=== PATIENT | male | born 1980 | race Caucasian/White ===

== ENCOUNTER 2019-10-13 18:35 | Emergency (ER) | payer OTHER ==
[2019-10-13] MEDS ORDERED: HYDROmorphone 0.5 MG/0.5 ML Syringe IVPUSH ONE ×2 (19:43→20:36)
[2019-10-13] MEDS: Sodium Chloride 0.9% 10 ML Syringe FLUSH PRN ×2 (19:56→21:15)
[2019-10-13] MEDS ORDERED: Sodium Chloride 0.9% 10 ML Syringe FLUSH PRN (20:06)
[2019-10-13] MEDS ORDERED: Iopamidol 755 Mg/ML 100 ML Bottle IVPUSH ONE (20:06)
[2019-10-13] MEDS ORDERED: Sodium Chloride 0.9% 100 ML IV SCH (20:15)
--- NOTE | 2019-10-13 20:18 | EDM.PDOC ---
ED HPI GENERAL MEDICAL PROBLEM - General Chief Complaint: Neck Problem Stated Complaint: NECK PAIN Time Seen by Provider: 10/13/19 19:14 Source of Information: Reports: Patient History Limitations: Reports: No Limitations - History of Present Illness INITIAL COMMENTS - FREE TEXT/NARRATIVE: The patient presents with neck pain. Today he developed dizziness at work. He went home to rest and came back and still had dizziness. He left work and took a nap and when he woke up he had pain to his left neck. He has some pain at the base of his head. He has no numbness or weakness. He says the dizziness is both room spinning and lightheadedness. He has never had this happen before. He tried to stretch his neck out and that made his dizziness worse. He has no pain down his arm. He has no numbness or weakness. He has no fever, chills, cough, congestion, runny nose, chest pain, shortness of breath, abdominal pain, nausea or vomiting. Onset: Gradual Duration: Hour(s): Location: Reports: Head, Neck Quality: Reports: Sharp Severity: Severe Improves with: Reports: Immobilization Worsens with: Reports: Movement Context: Denies: Trauma Associated Symptoms: Reports: No Other Symptoms Neck Pain Score (Numeric/FACES): 7 - Related Data Allergies Allergy/AdvReac Type Severity Reaction Status Date / Time No Known Allergies Allergy Verified 10/13/19 19:14 Home Meds: Home Meds metFORMIN [Glucophage XR] 1,000 mg PO BID 03/22/19 [History] Buprenorphine HCl/Naloxone HCl [Suboxone 4 mg-1 mg Sl Film] 16 mg PO DAILY 10/13 [History] Glimepiride [Amaryl] 6 mg PO DAILY 10/13/19 [History] Meclizine [Antivert] 25 mg PO Q6H PRN #30 tab 10/13/19 [Rx] Past Medical History HEENT History: Reports: None Cardiovascular History: Reports: None Respiratory History: Reports: None Other Gastrointestinal History: hernia repair Genitourinary History: Reports: None Neurological History: Reports: None Psychiatric History: Reports: Addiction Endocrine/Metabolic History: Reports: Diabetes, Type II Hematologic History: Reports: None Immunologic History: Reports: None Oncologic (Cancer) History: Reports: None Dermatologic History: Reports: None - Infectious Disease History Infectious Disease History: Reports: None - Past Surgical History Head Surgeries/Procedures: Reports: None GI Surgical History: Reports: Hernia, Inguinal Other Musculoskeletal Surgeries/Procedures:: restless arm Social & Family History - Tobacco Use Smoking Status *Q: Never Smoker Second Hand Smoke Exposure: No - Caffeine Use Caffeine Use: Reports: Coffee - Recreational Drug Use Recreational Drug Use: No - Living Situation & Occupation Living situation: Reports: , Alone 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 Denies: Chest Pain Endocrine: Reports: No Symptoms GI/Abdominal: Reports: No Symptoms : Reports: No Symptoms Musculoskeletal: Reports: Neck Pain Skin: Reports: No Symptoms Neurological: Reports: Dizziness, Headache Psychiatric: Reports: No Symptoms ED EXAM, UPPER BACK/NECK PAIN - Physical Exam Exam: See Below Exam Limited By: No Limitations General Appearance: Alert, No Apparent Distress Ears Exam: Normal External Exam Nose Exam: Normal Inspection Throat/Mouth Exam: Normal Inspection Head Exam: Atraumatic, Normocephalic Neck Exam: Other (Pain upon palpation to the left neck) Cardiovascular/Respiratory: Regular Rate, Rhythm, No M/R/G, Normal Breath Sounds , No Respiratory Distress GI/Abdominal: Soft, Non-Tender, No Organomegaly, No Mass Back Exam: Normal Inspection Extremities: Normal Inspection Neurologic: No Motor/Sensory Deficits, Alert, Oriented x 3 EKG INTERPRETATION EKG Date: 10/13/19 Time: 19:50 Rhythm: NSR Rate (Beats/Min): 60 [place]: Normal P-Wave: Present QRS: Normal ST-T: Normal QT: Normal Course - Vital Signs Last Recorded V/S: Last Vital Signs Temp 97.5 F 10/13/19 19:12 Pulse 55 L 10/13/19 19:12 Resp 16 10/13/19 19:12 BP 135/77 10/13/19 19:12 Pulse Ox 98 10/13/19 19:12 - Orders/Labs/Meds Orders: Active Orders 24 hr Category Date Time Status Cardiac Monitoring [RC] . DIRECTED Care 10/13/19 19:40 Active EKG Documentation Completion [RC] STAT Care 10/13/19 19:41 Active Peripheral IV Care [RC] . DIRECTED Care 10/13/19 19:41 Active Sodium Chloride 0.9% [Normal Saline] 100 ml Med 10/13/19 20:15 Active IV ASDIRECTED Sodium Chloride 0.9% [Saline Flush] Med 10/13/19 20:06 Active 10 ml FLUSH ASDIRECTED PRN Peripheral IV Insertion Adult [OM.PC] Stat Oth 10/13/19 19:40 Ordered Medication Orders Sodium Chloride (Normal Saline) 100 mls @ 3 mls/sec IV ASDIRECTED BREANNA Last Admin: 10/13/19 21:15 Dose: 3 mls/sec Sodium Chloride (Saline Flush) 10 ml FLUSH ASDIRECTED PRN PRN Reason: Keep Vein Open Last Admin: 10/13/19 21:19 Dose: 10 ml Labs: Laboratory Tests 10/13/19 10/13/19 Range/Units 19:55 19:55 WBC 7.97 (4.23-9.07) K/mm3 RBC 5.24 (4.63-6.08) M/mm3 Hgb 15.3 (13.7-17.5) gm/dl Hct 44.9 (40.1-51.0) % MCV 85.7 (79.0-92.2) fl MCH 29.2 (25.7-32.2) pg MCHC 34.1 (32.2-35.5) g/dl RDW Std Deviation 38.8 (35.1-43.9) fL Plt Count 251 (163-337) K/mm3 MPV 8.5 L (9.4-12.3) fl Neut % (Auto) 56.4 (34.0-67.9) % Lymph % (Auto) 32.5 (21.8-53.1) % [place] % (Auto) 10.5 (5.3-12.2) % Eos % (Auto) 0.5 L (0.8-7.0) Baso % (Auto) 0.1 (0.1-1.2) % Neut # (Auto) 4.49 (1.78-5.38) K/mm3 Lymph # (Auto) 2.59 (1.32-3.57) K/mm3 [place] # (Auto) 0.84 H (0.30-0.82) K/mm3 Eos # (Auto) 0.04 (0.04-0.54) K/mm3 Baso # (Auto) 0.01 (0.01-0.08) K/mm3 Sodium 140 (136-145) mEq/L Potassium 3.9 (3.5-5.1) mEq/L Chloride 103 (98-107) mEq/L Carbon Dioxide 27 (21-32) mEq/L Anion Gap 13.9 (5-15) BUN 17 (7-18) mg/dL Creatinine 0.8 (0.7-1.3) mg/dL Est Cr Clr Drug Dosing 132.04 mL/min Estimated GFR (MDRD) > 60 (>60) mL/min BUN/Creatinine Ratio 21.3 H (14-18) Glucose 135 H (74-106) mg/dL Calcium 9.2 (8.5-10.1) mg/dL Total Bilirubin 0.3 (0.2-1.0) mg/dL AST 28 (15-37) U/L ALT 74 H (16-63) U/L Alkaline Phosphatase 75 (46-116) U/L Troponin I < 0.017 (0.00-0.056) ng/mL C-Reactive Protein 0.6 (<1.0) mg/dL Total Protein 7.6 (6.4-8.2) g/dl Albumin 3.9 (3.4-5.0) g/dl Globulin 3.7 gm/dL Albumin/Globulin Ratio 1.1 (1-2) Meds: Medications Generic Name Dose Route Start Last Admin Trade Name Bita PRN Reason Stop Dose Admin Sodium Chloride 100 mls @ 3 mls/sec 10/13/19 20:15 10/13/19 21:15 Normal Saline IV 3 mls/sec ASDIRECTED BREANNA Administration Sodium Chloride 10 ml 10/13/19 20:06 10/13/19 21:19 Saline Flush FLUSH 10 ml ASDIRECTED PRN Administration Keep Vein Open Discontinued Medications Generic Name Dose Route Start Last Admin Trade Name Freq PRN Reason Stop Dose Admin Hydromorphone HCl 0.5 mg 10/13/19 19:43 10/13/19 19:56 Dilaudid IVPUSH 10/13/19 19:44 0.5 mg ONETIME ONE Administration Hydromorphone HCl 0.5 mg 10/13/19 20:36 10/13/19 20:41 Dilaudid IVPUSH 10/13/19 20:37 0.5 mg ONETIME ONE Administration Iopamidol 100 ml 10/13/19 20:06 10/13/19 21:15 Isovue-370 (76%) IVPUSH 10/13/19 20:07 100 ml ONETIME ONE Administration Meclizine HCl 25 mg 10/13/19 19:43 10/13/19 19:55 Antivert PO 10/13/19 19:44 25 mg ONETIME ONE Administration Sodium Chloride 10 ml 10/13/19 19:40 10/13/19 21:15 Saline Flush FLUSH 10 ml ASDIRECTED PRN Administration Keep Vein Open - Re-Assessments/Exams Free Text/Narrative Re-Assessment/Exam: 10/13/19 22:11 I ordered an IV saline lock, EKG, CT of his head and neck, labs, antivert and dilaudid. His EKG shows a NSR with no acute changes. His CBC looks good. His ALT is elevated at 74. His troponin is negative. His CRP is negative. The CT of his head with angiogram shows no acute intracranial abnormality is definitely appreciated on this exam. No focal occlusion or other abnormality is appreciated on CT angiogram study of the brain. The CT of the neck shows no vascular occlusion is seen within the common carotid arteries or internal carotid arteries. Jugular veins are also patent. Mild degenerative [place] within the cervical spine. Sinus findings with air-fluid level being seen within the left maxillary sinus. Difficult to exclude left-sided acute sinusitis if patient has correlating symptoms. No additional abnormality is seen on CT study of the neck. He had more pain so I ordered more dilaudid. 10/13/19 22:24 I will get him some flexeril and some antivert. Departure - Departure Time of Disposition: 22:25 Disposition: Home, Self-Care 01 Condition: Good Clinical Impression: Neck pain, Vertigo - Discharge Information *PRESCRIPTION DRUG MONITORING PROGRAM REVIEWED*: No *COPY OF PRESCRIPTION DRUG MONITORING REPORT IN PATIENT LIZZY: No Prescriptions: Meclizine [Antivert] 25 mg PO Q6H PRN #30 tab PRN Reason: Dizziness Referrals: Jossue Adam DO [Primary Care Provider] - 1 Week Forms: ED Department Discharge Additional Instructions: Drink plenty of fluids. Take the antivert as needed for dizziness every 6 hours. Take the flexeril every 8 hours as needed for neck pain. Take motrin or aleve for the neck pain also. Please return if you are worse. Sepsis Event Note - Evaluation Sepsis Screening Result: No Definite Risk - Focused Exam Vital Signs: Vital Signs Temp Pulse Resp BP Pulse Ox 10/13/19 19:12 97.5 F 55 L 16 135/77 98 Date Exam was Performed: 10/13/19 Time Exam was Performed: 22:24 - My Orders Last 24 Hours: My Active Orders 10/13/19 19:40 Cardiac Monitoring [RC] . DIRECTED Peripheral IV Insertion Adult [OM.PC] Stat 10/13/19 19:41 EKG Documentation Completion [RC] STAT Peripheral IV Care [RC] . DIRECTED 10/13/19 20:06 Sodium Chloride 0.9% [Saline Flush] 10 ml FLUSH ASDIRECTED PRN 10/13/19 20:15 Sodium Chloride 0.9% [Normal Saline] 100 ml IV ASDIRECTED - Assessment/Plan Last 24 Hours: My Active Orders 10/13/19 19:40 Cardiac Monitoring [RC] . DIRECTED Peripheral IV Insertion Adult [OM.PC] Stat 10/13/19 19:41 EKG Documentation Completion [RC] STAT Peripheral IV Care [RC] . DIRECTED 10/13/19 20:06 Sodium Chloride 0.9% [Saline Flush] 10 ml FLUSH ASDIRECTED PRN 10/13/19 20:15 Sodium Chloride 0.9% [Normal Saline] 100 ml IV ASDIRECTED
--- NOTE | 2019-10-13 21:41 | CT ---
This study was dictated as part of head CT exam.
--- NOTE | 2019-10-13 21:41 | CT ---
Head CT with angiogram Technique: Multiple axial sections through the brain were obtained. Study was obtained without and with intravenous contrast. Intravenous contrast obtained during the arterial phase. Findings: Ventricles along with basal cisterns and sulci over convexities are within normal limits. No abnormal parenchymal densities are appreciated. No evidence of intracranial hemorrhage. No midline shift or mass effect is seen. Distal carotid arteries and distal vertebral arteries are patent. Basilar artery is patent into the posterior cerebral arteries. Middle and anterior cerebral arteries are patent. No focal areas of occlusion are seen. No focal areas of stenosis is seen. Impression: 1. No acute intracranial abnormality is definitely appreciated on this exam. 2. No focal occlusion or other abnormality is appreciated on CT angiogram study of the brain. Diagnostic code #1 CT neck Technique: Multiple axial sections were obtained through the neck as a angiogram protocol. Unfortunately venous contamination occurred on the angiogram portion of the study which is less than optimal. Exam, however does show patency of the common carotid arteries as well as of the internal carotid arteries into the carotid siphon. Jugular veins are also patent. There is mild mucosal thickening seen within the right maxillary sinus and left maxillary sinus with possible air-fluid level within left maxillary sinus. Parotid salivary glands and submandibular salivary glands appear normal. No neck mass is seen. No adenopathy is seen below small normal-appearing lymph nodes are seen. Bone window settings shows mild degenerative change within the cervical spine. Prevertebral soft tissues are normal. Epiglottis is normal. Impression: 1. No vascular occlusion is seen within the common carotid arteries or internal carotid arteries. Jugular veins are also patent. 2. Mild degenerative change within the cervical spine. 3. Sinus findings with air-fluid level being seen within the left maxillary sinus. Difficult to exclude left-sided acute sinusitis if patient has correlating symptoms. 4. No additional abnormality is seen on CT study of the neck. Diagnostic code #3 Study was dictated in [place] Standard Time
--- NOTE | 2019-10-13 21:41 | CT ---
This study was dictated as part of head CT exam.
== END 2019-10-13 22:37 | disposition home or self-care (01) ==
LOC: JD.ED 18:35
DX: M54.2 Cervicalgia (principal); R42 Dizziness and giddiness; E11.9 Type 2 diabetes mellitus without complications; Z79.84 Long term (current) use of oral hypoglycemic drugs
CPT/HCPCS: 36415; 70491; 70496; 80053; 84484; 85025; 86140; 93005; 96374; 96376; 99284; A9270; J1170; J7050; Q9967; 70450; 70450-26; 93010

== ENCOUNTER 2024-06-13 21:30 | Emergency (ER) | payer BC | END 2024-06-13 23:02 | disposition home or self-care (01) | LOC: JD.ED 21:30 | DX: H57.12 Ocular pain, left eye (principal); E11.9 Type 2 diabetes mellitus without complications; Z86.16 Personal history of COVID-19; Z79.84 Long term (current) use of oral hypoglycemic drugs; Z79.899 Other long term (current) drug therapy | CPT/HCPCS: 99282; 99283 ==